=== PATIENT | male | born 1995 | race African-American/Black ===

== ENCOUNTER 2018-12-12 00:37 | Inpatient (IN) | payer SELFPAY ==
[~2018-12-12] VITALS: Ht 182.9 cm; Wt 77.6 kg
[2018-12-12 00:40] VITALS: Ht 182.9 cm; Wt 77.6 kg
[2018-12-12 01:34] LABS: CALCIUM 9.4 mg/dL (8.5-10.1); CARBON DIOXIDE 26.8 mmol/L (21-32); CHLORIDE SERUM 106 mmol/L (98-107); CREATININE SERUM 1.1 mg/dL (0.7-1.3); GFR1 > 60 mL/min; GLUCOSE SERUM 92 mg/dL (74-106); SODIUM SERUM 141 mmol/L (136-145)
[2018-12-12 01:36] LABS: BASOPHIL % 0.3 % (0-2); PLATELET COUNT 169 x10^3mcL (130-400); RED CELL DISTRIBUTION WIDTH 12.7 % (11.5-14.5)
[2018-12-12 01:38] LABS: ALBUMIN 4.2 g/dL (3.4-5.0); ALKALINE PHOSPHATASE 59 U/L (46-116); ALT/SGPT 25 U/L (16-63); AST/SGOT 13 U/L (15-37); BILIRUBIN TOTAL 1.91 mg/dL (0.20-1.00); TOTAL PROTEIN, SERUM 7.3 g/dL (6.4-8.2)
[2018-12-12 05:09] LABS: CHOLESTEROL/HDL RATIO 3.3
[2018-12-12 06:27] VITALS: BP 129/72
[2018-12-12 07:27] LABS: BILIRUBIN DIRECT 0.29 mg/dL (0.0-0.2); BILIRUBIN TOTAL 1.9 mg/dL (0.20-1.00)
[2018-12-12 09:00] VITALS: BP 121/61
[2018-12-12 11:49] VITALS: BP 111/60
[2018-12-12 15:35] VITALS: BP 106/67
== END 2018-12-12 20:59 | disposition left against medical advice (07) | DRG 206 ==
LOC: ED 00:37 → DU 04:32
PROVIDERS: Emergency Medicine; ADMIT Family Medicine
DX: M94.0 Chondrocostal junction syndrome [Tietze] (principal); I20.1 Angina pectoris with documented spasm; F12.10 Cannabis abuse, uncomplicated; E80.6 Other disorders of bilirubin metabolism; Z53.21 Procedure and treatment not carried out due to patient leaving prior to being seen by health care provider; Z86.718 Personal history of other venous thrombosis and embolism; Z79.01 Long term (current) use of anticoagulants; Z86.711 Personal history of pulmonary embolism
CPT/HCPCS: 83880; 85378; J1644; J1650; J2270; J2405; J7030; Q0092

== ENCOUNTER 2019-10-02 16:58 | Emergency (ER) | payer OTHER ==
[~2019-10-02] VITALS: Ht 185.4 cm; Wt 85.3 kg
[2019-10-02 17:08] VITALS: Ht 185.4 cm; Wt 85.3 kg
[2019-10-02 21:00] VITALS: BP 128/79
== END 2019-10-02 21:00 | disposition home or self-care (01) ==
LOC: ED 16:58
DX: S22.31XA Fracture of one rib, right side, initial encounter for closed fracture (principal); Y08.02XA Assault by strike by baseball bat, initial encounter; Y93.89 Activity, other specified; Y92.488 Other paved roadways as the place of occurrence of the external cause; Y99.8 Other external cause status
CPT/HCPCS: J1885; Q0092